=== PATIENT | male | born 1975 | race Caucasian/White ===

== ENCOUNTER 2017-04-22 21:43 | Emergency (ER) | payer SELFPAY ==
[~2017-04-22] VITALS: Ht 185.4 cm; Wt 117.9 kg
--- NOTE | 2017-04-22 21:56 | NUR ---
PT BIB FAMILY, PT C/O ON AND OFF SOB X 3 DAYS. PT IS AAOX4. RESP EVEN AND UNLABORED. NO S/S OF ACUTE DISTRESS NOTED. SKIN WNL. SPO2 99% ON RA. PT FAMILY MEMBER BEDSIDE WITH PT. PT GOWNED AND PLACED ON MONITOR AND POX. PT SAFETY AND COMOFRT MEASURES IN PLACE. AWAITING MD FOR EVAL.
--- NOTE | 2017-04-22 22:18 | NUR ---
IKER DOUGLAS BEDSIDE WITH PT
[2017-04-22 23:02] LABS: BASOPHILS # (AUTO) 0.1 /CMM (0.0-0.2); BASOPHILS % (AUTO) 0.8 % (0.0-2.0); EOSINOPHILS # (AUTO) 0.3 /CMM (0.0-0.7); EOSINOPHILS % (AUTO) 3.9 % (0.0-6.0); HEMATOCRIT 47 % (39-51); HEMOGLOBIN 16.6 g/dL (13.5-17.5); LYMPHOCYTES # (AUTO) 3.7 /CMM (0.8-4.8); LYMPHOCYTES % (AUTO) 43.1 % (20.0-44.0); MEAN CORPUSCULAR HEMOGLOBIN 32 PG (26.0-33.0); MEAN CORPUSCULAR HGB CONC 36 g/dl (31.0-36.0); MEAN CORPUSCULAR VOLUME 90 fL (80-96); MONOCYTES # (AUTO) 0.5 /CMM (0.1-1.30); MONOCYTES % (AUTO) 6.3 % (2.0-12.0); NEUTROPHILS # (AUTO) 3.9 /CMM (1.8-8.9); NEUTROPHILS % (AUTO) 45.9 % (43.0-81.0); PLATELET COUNT (AUTO) 370 /CMM (150-450); RDW COEFFICIENT OF VARIATION 12.9 (11.5-15.0); RED BLOOD CELL COUNT(AUTO) 5.19 MIL/uL (4.5-6.0); WHITE BLOOD COUNT (AUTO) 8.5 K/uL (4.3-11.0)
[2017-04-22 23:10] LABS: CALCIUM, SERUM 8.7 mg/dL (8.5-10.1); CARBON DIOXIDE 25 mmol/L (21-32); CHLORIDE 105 mmol/L (98-107); CREATININE 0.8 mg/dL (0.6-1.3); GLUCOSE 108 mg/dL (74-106); POTASSIUM 3.6 mmol/L (3.5-5.1); SODIUM SERUM 138 mmol/L (136-145); UREA NITROGEN, BLOOD 12 mg/dL (7-18)
[2017-04-22 23:16] LABS: INR 0.91 (0.87-1.13)
[2017-04-22 23:25] LABS: TROPONIN I < 0.017 ng/mL (0.00-0.056)
[2017-04-22] MEDS ORDERED: LORAZEPAM 1 MG TABLET PO ONE (23:30)
[2017-04-23] MEDS ORDERED: LORAZEPAM 1 MG TABLET ONE (00:01)
--- NOTE | 2017-04-23 00:12 | NUR ---
Patient discharged to home in stable condition. Written and verbal after care instructions given. Patient verbalizes understanding of instruction.IV removed. Catheter intact and site benign. Pressure and 4x4 applied to site. No bleeding noted. VSS upon discharge. Pt ambulated with steady gait out of ER.
[2017-04-23 00:13] VITALS: BP 164/91
== END 2017-04-23 00:16 | disposition home or self-care (01) ==
LOC: ER 21:47
DX: R07.9 Chest pain, unspecified (principal); R03.0 Elevated blood-pressure reading, without diagnosis of hypertension; Z88.0 Allergy status to penicillin
CPT/HCPCS: 36415; 71045-TC; 80048-TC; 83690-TC; 84484-TC; 85025-TC; 85730-TC; A4606; Z7610